=== PATIENT | male | born 1945 | race Caucasian/White ===

== ENCOUNTER 2023-03-01 06:02 | Observation (INO) | payer MEDICARE, OTHER ==
[~2023-03-01] VITALS: Ht 180.3 cm; Wt 115.7 kg
[~2023-03-01 06:02] MED LIST: ASPIRIN81 MG PO; BENICAR20 MG PO; SPIRONOLACTONE1 EACH PO; ZETIA10 MG PO
[2023-03-01] MEDS ORDERED: CELECOXIB 200 MG CAP ONE (06:30)
[2023-03-01] MEDS ORDERED: DEXAMETHASONE SOD PHOS 10 MG/1 ML VIAL ONE ×2 (06:30→12:55)
[2023-03-01] MEDS ORDERED: GABAPENTIN 300 MG CAP ONE (06:30)
[2023-03-01] MEDS ORDERED: CEFAZOLIN SODIUM 2 GM ONE (06:31)
[2023-03-01] MEDS ORDERED: LACTATED RINGER'S 1,000 ML ONE (06:31)
[2023-03-01] MEDS ORDERED: IBUPROFEN200 MG PO (06:48)
[2023-03-01] MEDS ORDERED: SODIUM CHLORIDE 0.9% 500ML 500 ML ONE (06:53)
[2023-03-01] MEDS ORDERED: Vancomycin IV 1,000 MG ONE (06:53)
[2023-03-01] MEDS ORDERED: TRANEXAMIC ACID 20 ML ONE (06:53)
[2023-03-01] MEDS ORDERED: ACETAMINOPHEN 1000 MG/100 ML 100 ML IV ONE (07:12)
[2023-03-01] MEDS ORDERED: SUGAMMADEX SODIUM 200 MG/2 ML VIAL IV ONE (07:55)
[2023-03-01] MEDS ORDERED: ROPIVACAINE 246.25 MG, EPINEPHRINE HCL 1:1000 1ML 0.5 MG, CLONIDINE HCL 0.08 MG, KETORO... INJ ONE ×5 (08:00)
[2023-03-01] MEDS ORDERED: DIPHENHYDRAMINE HCL INJ 50 MG/ML VIAL IV PRN (10:15)
[2023-03-01] MEDS ORDERED: DOCUSATE SODIUM 100 MG CAP PO PRN (10:15)
[2023-03-01] MEDS ORDERED: TRAMADOL HCL 50 MG TAB PO PRN (10:15)
[2023-03-01] MEDS ORDERED: ONDANSETRON HCL INJ 2MG/ML 2ML 2 MG/ML VIAL IV PRN (10:15)
[2023-03-01] MEDS ORDERED: ACETAMINOPHEN 650 MG SUPP PR PRN (10:15)
[2023-03-01] MEDS ORDERED: ZOLPIDEM TARTRATE 5 MG TAB PO PRN (10:15)
[2023-03-01] MEDS ORDERED: FENTANYL CITRATE/PF 100MCG/2 ML INJ ONE ×2 (10:46→12:28)
[2023-03-01] MEDS ORDERED: FENTANYL CITRATE/PF 100MCG/2 ML INJ IV ONE (10:50)
[2023-03-01] MEDS ORDERED: Morphine 4mg INJECTION 4 MG/ML INJ ONE (11:59)
[2023-03-01] MEDS ORDERED: MIDAZOLAM HCL 2 MG/2 ML VIAL ONE (12:28)
[2023-03-01 12:45] VITALS: BP 124/56
[2023-03-01] MEDS ORDERED: KETOROLAC TROMETHAMINE 30 MG/ML VIAL ONE (12:52)
[2023-03-01] MEDS ORDERED: LIDOCAINE HCL 2% LOCAL INJ 5 ML SDV VIAL INJ ONE (12:52)
[2023-03-01] MEDS ORDERED: EPHEDRINE SULFATE INJ 50 MG/ML VIAL ONE (12:52)
[2023-03-01] MEDS ORDERED: SEVOFLURANE INHAL SOLN 250 ML PEN BTL ONE (12:52)
[2023-03-01] MEDS ORDERED: ONDANSETRON HCL INJ 2MG/ML 2ML 2 MG/ML VIAL ONE (12:52)
[2023-03-01] MEDS ORDERED: ROCURONIUM BROMIDE 10 MG/ML 5ML VIAL IV ONE (12:52)
[2023-03-01] MEDS ORDERED: DEXAMETHASONE SOD PHOS INJ 4 MG/ML SDV ONE (12:52)
[2023-03-01] MEDS ORDERED: PROPOFOL IV EMULSION 10 MG/ML 20 ML VIAL ONE (12:52)
[2023-03-01] MEDS ORDERED: POVIDONE IODINE 0.05% 0.05 % ML PO ONE (12:52)
[2023-03-01] MEDS ORDERED: ROPIVACAINE 0.5% 5 MG/ML 30 ML SDV ONE (12:55)
[2023-03-01 13:00] VITALS: BP 124/56
[2023-03-01] MEDS ORDERED: SODIUM CHLORIDE 0.9% 1000ML 1,000 ML IV SCH (13:30)
[2023-03-01 15:31] VITALS: BP 108/59
[2023-03-01] MEDS ORDERED: CELECOXIB 200 MG CAP PO SCH (17:00)
[2023-03-01] MEDS ORDERED: ASPIRIN 325 MG TAB PO SCH (17:00)
[2023-03-02] MEDS ORDERED: ACETAMINOPHEN 1000 MG/100 ML IV PRN (10:15)
== END 2023-03-01 18:40 | disposition home or self-care (01) ==
LOC: OR 06:02 → PACU V 10:13 → MED/SURG2 12:37
PROVIDERS: ADMIT Specialist; ATTEND Specialist
DX: M16.0 Bilateral primary osteoarthritis of hip (principal); Z01.810 Encounter for preprocedural cardiovascular examination; Z01.812 Encounter for preprocedural laboratory examination; Z01.818 Encounter for other preprocedural examination; E78.00 Pure hypercholesterolemia, unspecified; Z88.5 Allergy status to narcotic agent; Z88.2 Allergy status to sulfonamides
CPT/HCPCS: 0223U; 27130; 36415; 71046; 72170; 86850; 86900; 86920; 94799; 97110; 97116; 97161; 97530; C1713 ×3; C1776 ×2; G0378; J0131; J0171; J0690; J1100 ×2; J1885; J2001; J2250; J2270; J2405; J2704; J2795; J3010; J3370; J7030; J7040; J7121